=== PATIENT | female | born 1990 ===

== ENCOUNTER 2022-03-14 06:00 | Inpatient (IN) | payer OTHER ==
[2022-03-14] VITALS (27 sets, daily range): BP systolic 105–146; BP diastolic 56–87
[~2022-03-14] VITALS: Ht 152.4 cm; Wt 88.0 kg
[~2022-03-14 06:00] MED LIST: IBUP-1773 PO
[2022-03-14] MEDS ORDERED: MINERAL OIL 30 ML UDC TOP PRN (06:30)
[2022-03-14] MEDS ORDERED: LIDOCAINE/EPI 2% 1:200,00 (XYLOCAINE) 10 ML VIAL INJ PRN (06:30)
[2022-03-14 06:33] LABS: HEMOGLOBIN 13.1 g/dL (11.5-16.0); MONOCYTES % (AUTO) 7 % (0-12)
[2022-03-14 06:34] LABS: BILIRUBIN,URINE NEGATIVE (NEGATIVE); CLARITY,URINE CLOUDY; COLOR,URINE YELLOW; GLUCOSE, URINE (UA) NEGATIVE (NEGATIVE); KETONES,URINE NEGATIVE (NEGATIVE); LEUKOCYTE ESTERASE ,URINE 2+ (NEGATIVE); NITRITE,URINE NEGATIVE (NEGATIVE); PROTEIN,URINE NEGATIVE (NEGATIVE)
[2022-03-14 06:35] LABS: BASOPHILS % (AUTO) 0 % (0-10); EOSINOPHILS % (AUTO) 1 % (0-10); HEMATOCRIT 39 % (35-52); LYMPHOCYTES # (AUTO) 1.8 10^3/uL (1.0-4.0); LYMPHOCYTES % (AUTO) 23 % (12-44); MEAN CORPUSCULAR HEMOGLOBIN 30 pg (25-34); MEAN CORPUSCULAR HGB CONC 34 g/dL (32-36); MEAN CORPUSCULAR VOLUME 89 fL (80-99); MONOCYTES # (AUTO) 0.5 10^3/uL (0.0-1.0); NEUTROPHILS # (AUTO) 5.4 10^3/uL (1.8-7.8); NEUTROPHILS % (AUTO) 69 % (42-75); PLATELET COUNT 126 10^3/uL (130-400); WHITE BLOOD COUNT 7.8 10^3/uL (4.3-11.0)
[2022-03-14 06:41] LABS: BACTERIA,URINE LARGE /HPF
[2022-03-14 06:45] LABS: SMEAR SCAN COMMENT YES
[2022-03-14] MEDS ORDERED: LACTATED RINGERS 1,000 ML IV ONE (06:45)
[2022-03-14] MEDS: D5 LR IV SOLUTION 1,000 ML IV SCH ×2 (07:26→15:04)
[2022-03-14] MEDS ORDERED: OXYTOCIN PRE-MIX DRIP 500 ML IV SCH (09:00)
[2022-03-14] MEDS ORDERED: OXYTOCIN PRE-MIX DRIP 500 ML IV ONE (09:03)
--- NOTE | 2022-03-14 09:41 | History & Physical-OB ---
OB - Chief Complaint & HPI Date/Time Date of Admission: Date of Admission: Mar 14, 2022 at 06:00 Date seen by a Provider: Mar 14, 2022 Time Seen by a Provider: 08:45 Chief Complaint/History OB-Reason for Admission/Chief: Induction of Labor Hx : 6 Hx Para: 3 Expected Date of Delivery: Mar 18, 2023 Gestational Age in Weeks: 39 Gestational Age in Days: 3 History of Labs O+, Ab neg, Rub Imm HIV/RPR/hepB/C NR GC/chyl neg GBS neg Allergies and Home Medications Allergies Coded Allergies: No Known Drug Allergies (Unverified , 07/30/15) Patient Home Medication List Home Medication List Reviewed: Yes Ibuprofen (Ibuprofen) 600 Mg Tablet, 600 MG PO Q6H Prescribed by: MAC BISWAS on 07/31/15 0949 OB - History Hx of Present Care: Yes Ultrasounds: Normal mid trimester US Obstetrical Complications: None Medical Complications: None Obstetrical History Hx : 6 Hx Para: 3 Hx # Term Pregnancies: 3 Number of Living Children: 3 Hx Termination: No Hx Total # of Abortions (Spona: 2 Hx Multiple Gestation: No Hx Stillbirth: No Hx Complication: No Hx Induced Hypertens: No Hx Maternal Gestational Diabet: No Delivery History Hx Dystocia: No Hx Large For Gestational Age I: No Hx Small for Gestational Age I: No Hx Section: No Hx Vaginal Delivery Post C-Sec: No Hx Blood Disorders: No Adverse Rxn to Tranfusion: No Patient Past Medical History Denies PMH PSH: Inguinal hernia repair at age 15 Social History/Family History Alcohol Use: Denies Use Recreational Drug Use: No Smoking Cessation: Never smoker Immunizations Influenza Vaccine Up-to-Date: No; Not Current Hepatitis A: No Hepatitis B: No Tetanus Booster (TDap): Less than 5yrs Rubella: immune RPR/VDRL: Negative GBS Status: Negative HBsAG: Negative OB - Admission Exam Physical Exam Vitals: Vital Signs 03/14/22 03/14/22 07:50 09:15 Temp 36.5 Pulse 100 Resp 18 B/P (MAP) 112/76 (88) Pulse Ox 99 O2 Delivery Room Air HEENT: NCAT Heart: Rhythm Normal Lungs: Clear Abdomen: Gravid Cervical Dilatation: 3cm Effacement: 75% Station: Ballotable Membranes: Intact Accelerations: Accelerations Present Contractions on Admission: < 5 Minutes Apart Intensity: Moderate Labs Laboratory Tests Test 03/14/22 06:30 Range/Units White Blood Count 7.8 4.3-11.0 10^3/uL Red Blood Count 4.37 3.80-5.11 10^6/uL Hemoglobin 13.1 11.5-16.0 g/dL Hematocrit 39 35-52 % Mean Corpuscular Volume 89 80-99 fL Mean Corpuscular Hemoglobin 30 25-34 pg Mean Corpuscular Hemoglobin Concent 34 32-36 g/dL Red Cell Distribution Width 15.5 H 10.0-14.5 % Platelet Count 126 L 130-400 10^3/uL Mean Platelet Volume 13.0 H 9.0-12.2 fL Immature Granulocyte % (Auto) 0 % Neutrophils (%) (Auto) 69 42-75 % Lymphocytes (%) (Auto) 23 12-44 % Monocytes (%) (Auto) 7 0-12 % Eosinophils (%) (Auto) 1 0-10 % Basophils (%) (Auto) 0 0-10 % Neutrophils # (Auto) 5.4 1.8-7.8 10^3/uL Lymphocytes # (Auto) 1.8 1.0-4.0 10^3/uL Monocytes # (Auto) 0.5 0.0-1.0 10^3/uL Eosinophils # (Auto) 0.0 0.0-0.3 10^3/uL Basophils # (Auto) 0.0 0.0-0.1 10^3/uL Immature Granulocyte # (Auto) 0.0 0.0-0.1 10^3/uL Percent Immature Platelet Fraction 16.5 H 0.0-7.6 % Urine Color YELLOW Urine Clarity CLOUDY Urine pH 7.0 5-9 Urine Specific [place] 1.020 1.016-1.022 Urine Protein NEGATIVE NEGATIVE Urine Glucose (UA) NEGATIVE NEGATIVE Urine Ketones NEGATIVE NEGATIVE Urine Nitrite NEGATIVE NEGATIVE Urine Bilirubin NEGATIVE NEGATIVE Urine Urobilinogen 1.0 < = 1.0 MG/DL Urine Leukocyte Esterase 2+ H NEGATIVE Urine RBC (Auto) NEGATIVE NEGATIVE Urine RBC NONE /HPF Urine WBC 10-25 H /HPF Urine Squamous Epithelial Cells 10-25 H /HPF Urine Crystals NONE /LPF Urine Bacteria LARGE H /HPF Urine Casts NONE /LPF Urine Mucus NEGATIVE /LPF Urine Culture Indicated YES Smear Scan YES OB - Assessment/Plan/Diagnosis Assessment Assessment: induction of labor Admission Dx Third Trimester 39 weeks gestation Admission Status: Inpatient Order (span 2 midnights) Reason for Inpatient Admission: Labor and post care Plan Other Plan 31 yo @ 39.3 wga here for elective IOL Plan - GBS neg - Expectant management Copy Copies To 1: TORY VASQUEZ MD, HOLLY R MD Mar 14, 2022 09:41
[2022-03-14] MEDS ORDERED: CATHETER FLUSH 10 ML SYR IV SCH ×2 (14:00→22:00)
[2022-03-14] MEDS ORDERED: BENZOCAINE/MENTHOL (DERMOPLAST) 56 ML CAN TP PRN (15:45)
[2022-03-14] MEDS ORDERED: WITCH HAZEL(TUCKS) 40 EA JAR TOP PRN (15:45)
[2022-03-14] MEDS ORDERED: MEASLES,MUMPS,RUBELLA 1 EA INJ SQ ONE (15:45)
--- NOTE | 2022-03-14 15:47 | OB Labor & Delivery Record ---
Vag Delivery Note Vag Delivery Note Date of Delivery: 03/14/22 Preoperative Diagnosis: Peggy Rosado is a (31 /Para 6 / 3, Gestational Age (wks)39.3 here for IOL Postoperative Diagnosis: Same Surgeon: TORY VASQUEZ MD Manufacturing Systems Engineer: Jamaal Fernández MS3 Anesthesia: Natural Delivery Type: @1521 Findings: Viable female , apgars 8/9, weight 8#2, 3675 grams Lacerations: none Intact placenta with 3 vessel cord. No nuchal cord, body cord or shoulder dystocia Cytotec 800 mcg placed for hemorrhage prophylaxis Estimated Blood Loss: 115 ml Complications: None Condition: Stable Description of Procedure: The patient is a 31 year old female who presented for elective IOL. She was admitted and informed consent was obtained. Her labor course was unremarkable. She progressed to complete dilatation and began to push. She was then set up for delivery. The 's head was delivered atraumatically in the KEIRA position. The shoulders and remainder of the 's body were then delivered without difficulty. Upon delivery, the head was held below the level of the perineum and the mouth and nares were bulb suctioned. The cord was doubly clamped and cut after 2 min delay and the was attended to by the pediatric staff on maternal abdomen. An intact placenta with 3-vessel cord delivered via Gayatri and there was found to be minimal bleeding.~ Vigorous fundal massage was performed and the fundus was found to be firm. IV oxytocin was given. Examination of the vagina and perineum revealed no lacerations that required repair. Following the repair, sponge, instrument and needle counts were correct. Mom and baby were both in stable condition in the labor suite. Vitals - Labs Vital Signs - I&O Vital Signs Date Time Temp Pulse Resp B/P (MAP) Pulse Ox O2 Delivery O2 Flow Rate FiO2 03/14/22 14:45 96 20 120/82 (95) Room Air 03/14/22 14:15 36.6 83 20 125/71 (89) Room Air 03/14/22 13:45 98 18 129/75 (93) Room Air 03/14/22 13:15 83 20 129/77 (94) Room Air 03/14/22 12:45 103 18 118/77 (91) Room Air 03/14/22 12:15 36.5 86 18 115/71 (86) Room Air 03/14/22 11:45 86 18 120/76 (91) Room Air 03/14/22 11:15 86 18 122/72 (89) Room Air 03/14/22 10:45 92 18 119/76 (90) Room Air 03/14/22 10:15 89 16 130/76 (94) Room Air 03/14/22 09:45 82 16 121/72 (88) Room Air 03/14/22 09:15 36.5 100 18 112/76 (88) Room Air 03/14/22 09:00 94 18 118/72 (87) Room Air 03/14/22 07:50 36.8 84 16 113/76 (88) 99 Room Air 03/14/22 06:19 36.5 92 18 98 Room Air Labs Laboratory Tests 03/14/22 06:30: White Blood Count 7.8, Red Blood Count 4.37, Hemoglobin 13.1, Hematocrit 39, Mean Corpuscular Volume 89, Mean Corpuscular Hemoglobin 30, Mean Corpuscular Hemoglobin Concent 34, Red Cell Distribution Width 15.5H, Platelet Count 126L, Mean Platelet Volume 13.0H, Immature Granulocyte % (Auto) 0, Neutrophils (%) (Auto) 69, Lymphocytes (%) (Auto) 23, Monocytes (%) (Auto) 7, Eosinophils (%) (Auto) 1, Basophils (%) (Auto) 0, Neutrophils # (Auto) 5.4, Lymphocytes # (Auto) 1.8, Monocytes # (Auto) 0.5, Eosinophils # (Auto) 0.0, Basophils # (Auto) 0.0, Immature Granulocyte # (Auto) 0.0, Percent Immature Platelet Fraction 16.5H, Urine Color YELLOW, Urine Clarity CLOUDY, Urine pH 7.0, Urine Specific [employer] 1.020, Urine Protein NEGATIVE, Urine Glucose (UA) NEGATIVE, Urine Ketones NEGATIVE, Urine Nitrite NEGATIVE, Urine Bilirubin NEGATIVE, Urine Urobilinogen 1.0, Urine Leukocyte Esterase 2+H, Urine RBC (Auto) NEGATIVE, Urine RBC NONE, Urine WBC 10-25H, Urine Squamous Epithelial Cells 10-25H, Urine Crystals NONE, Urine Bacteria LARGEH, Urine Casts NONE, Urine Mucus NEGATIVE, Urine Culture Indicated YES, Smear Scan YES TORY VASQUEZ MD Mar 14, 2022 15:47
[2022-03-14] MEDS: IBUPROFEN 600 MG (MOTRIN) TAB PO SCH ×2 (16:14→21:09)
[2022-03-14] MEDS: DOCUSATE SODIUM 100 MG (COLACE) CAP PO SCH (21:09)
[2022-03-14] MEDS: ACETAMINOPHEN 500 MG TAB (TYLENOL) PO SCH (21:15)
[2022-03-15 00:02] VITALS: BP 123/66
[2022-03-15 04:10] VITALS: BP 111/53
[2022-03-15] MEDS: IBUPROFEN 600 MG (MOTRIN) TAB PO SCH ×3 (04:10→17:00)
[2022-03-15 06:23] LABS: HEMOGLOBIN 10.8 g/dL (11.5-16.0)
[2022-03-15 06:24] LABS: BASOPHILS % (AUTO) 0 % (0-10); EOSINOPHILS % (AUTO) 0 % (0-10); HEMATOCRIT 33 % (35-52); LYMPHOCYTES # (AUTO) 1.5 10^3/uL (1.0-4.0); LYMPHOCYTES % (AUTO) 17 % (12-44); MEAN CORPUSCULAR HEMOGLOBIN 29 pg (25-34); MEAN CORPUSCULAR HGB CONC 33 g/dL (32-36); MEAN CORPUSCULAR VOLUME 89 fL (80-99); MEAN PLATELET VOLUME 12.8 fL (9.0-12.2); MONOCYTES # (AUTO) 0.7 10^3/uL (0.0-1.0); MONOCYTES % (AUTO) 8 % (0-12); NEUTROPHILS # (AUTO) 6.6 10^3/uL (1.8-7.8); NEUTROPHILS % (AUTO) 74 % (42-75); PLATELET COUNT 108 10^3/uL (130-400)
[2022-03-15] MEDS: DOCUSATE SODIUM 100 MG (COLACE) CAP PO SCH (08:58)
[2022-03-15 09:00] VITALS: BP 113/57
[2022-03-15] MEDS ORDERED: FERR-74 PO (09:15)
[2022-03-15] MEDS ORDERED: IBUP-1773 PO (09:15)
[2022-03-15] MEDS ORDERED: DOCU100C37 PO (09:15)
[2022-03-15] MEDS: ACETAMINOPHEN 500 MG TAB (TYLENOL) PO SCH ×2 (10:31→17:00)
[2022-03-15 12:30] VITALS: BP 115/55
--- NOTE | 2022-03-15 14:40 | Discharge Summary ---
NATESANTIAGO C 03/15/22 1438: Discharge Summary Hospital Course Problems Reviewed?: Yes Problems/Diagnosis: (1) 39 weeks gestation of (2) Elective induction of labor planned Hospital Course Date of Admission: Mar 14, 2022 at 06:00 Admission Diagnosis : Term Intrauterine Induction of Term Labor Family Physician/Provider: Date of Discharge: 03/15/22 Discharge Diagnosis: S/p spontaneous vaginal delivery, asymptomatic anemia Hospital Course: 31 yo G6 now P4 admitted at 39 weeks gestation for induction of labor. Uncomplicated delivery and course. Labs and Pending Lab Test: Laboratory Tests 03/15/22 06:16: White Blood Count 9.0, Red Blood Count 3.69L, Hemoglobin 10.8L, Hematocrit 33L, Mean Corpuscular Volume 89, Mean Corpuscular Hemoglobin 29, Mean Corpuscular Hemoglobin Concent 33, Red Cell Distribution Width 15.5H, Platelet Count 108L, Mean Platelet Volume 12.8H, Immature Granulocyte % (Auto) 0, Neutrophils (%) (Auto) 74, Lymphocytes (%) (Auto) 17, Monocytes (%) (Auto) 8, Eosinophils (%) (Auto) 0, Basophils (%) (Auto) 0, Neutrophils # (Auto) 6.6, Lymphocytes # (Auto) 1.5, Monocytes # (Auto) 0.7, Eosinophils # (Auto) 0.0, Basophils # (Auto) 0.0, Immature Granulocyte # (Auto) 0.0, Percent Immature Platelet Fraction 14.9H Microbiology 03/14/22 Urine Culture - Preliminary, Resulted Gram Pos Mixed Bacterial Kelin Home Meds Active Docusate Sodium 100 Mg Capsule 100 Mg PO BID PRN Ferrous Sulfate 325 Mg (65 Mg Iron) Tablet 325 Mg PO DAILY Ibuprofen 600 Mg Tablet 600 Mg PO Q6H PRN Assessment/Pt DC Instructions Follow up in 6 weeks for visit Discharge Diet: No Restrictions Activity as Tolerated: Yes Discharge Physical Examination Allergies: Coded Allergies: No Known Drug Allergies (Unverified , 07/30/15) General Appearance: No Apparent Distress, WD/WN Respiratory: Lungs Clear, Normal Breath Sounds, No Accessory Muscle Use, No Respiratory Distress Cardiovascular: Regular Rate, Rhythm, No JVD, No Murmur Gastrointestinal: Normal Bowel Sounds, Non Tender, Soft Skin: Normal Color, Warm/Dry Neurologic/Psychiatric: Alert, Oriented x3, No Motor/Sensory Deficits, Normal Mood/Affect Discharge Summary Date of Admission Mar 14, 2022 at 06:00 Date of Discharge Discharge Date: Mar 15, 2022 ERA OREILLY DO 03/20/22 0555: Discharge Summary Discharge Physical Examination Allergies: Coded Allergies: No Known Drug Allergies (Unverified , 07/30/15) Supervisory-Addendum Brief Verification & Attestation Participated in pt care: history, physical Personally performed: exam, history, supervision of care Care discussed with: Medical Student Procedures: n/a Verification and Attestation of Medical Student E/M Service A medical student performed and documented this service in my presence. I reviewed and verified all information documented by the medical student and made modifications to such information, when appropriate. I personally performed the physical exam and medical decision making. Era Oreilly, Mar 20, 2022,05:55 SANTIAGO SULLIVAN Mar 15, 2022 14:38 ERA OREILLY DO Mar 20, 2022 05:55
[2022-03-15 17:30] VITALS: BP 115/55
--- NOTE | 2022-03-18 04:04 | Physician Query Clarification ---
PQ-Further Specificity Admission/Discharge Admission Date: Mar 14, 2022 at 06:00 Discharge Date: Mar 15, 2022 at 17:50 TORY Coleman MD The medical record reflects the following clinical scenario: History/Risk Factors: 31 y/o female patient with 39 weeks gestational age admitted for induction of labor, delivered via normal spontaneously vaginal delivery, anemia was documented in discharge summary. Clinical Findings: HGB- dropped from 13.1 to 10.8 L, HCT- dropped from 39 to 33 L, estimated blood loss-115 ml. Treatment: Ferrous sulphate. Question: Can you further specify anemia per the clinical indicators above? Please document a response in the Progress Notes or Discharge Summary. 1. Acute blood loss anemia. 2. Iron deficiency anemia. 3. Other, with explanation of the clinical findings. 4. Clinically undetermined, no explanation for the clinical findings. PHYSICIAN RESPONSE Can you specify per above: 1 Explanation/Clinical Findings Anemia of acute blood loss In responding to this query, please exercise your independent professional judgment. The purpose of this communication is to more accurately reflect the complexity of your patients condition. The fact that a question is asked does not imply that any particular answer is desired or expected. Thank you for your timely response to this clarification. Requestors name: [ ] Phone # [ ] THIS PHYSICIAN QUERY FORM IS A PERMANENT PART OF THE MEDICAL RECORD CARMINE SANTIAGO Mar 18, 2022 04:04 TORY VASQUEZ MD Apr 05, 2022 11:20
== END 2022-03-15 17:50 | disposition home or self-care (01) | DRG 806 ==
LOC: LDRP 06:00
PROVIDERS: ADMIT Family Medicine; ATTEND Family Medicine
PROC: 10E0XZZ Delivery of Products of Conception, External Approach (ICD-10-PCS; principal; 2022-03-14)
PROC: 3E033VJ Introduction of Other Hormone into Peripheral Vein, Percutaneous Approach (ICD-10-PCS; 2022-03-14)
DX: O90.81 Anemia of the puerperium (principal); D62 Acute posthemorrhagic anemia; Z37.0 Single live birth; Z3A.37 37 weeks gestation of pregnancy
CPT/HCPCS: 36415; 81000; 85025; 86850; 86900; 86901; 87088; 88307